=== PATIENT | male | born 1995 | race Caucasian/White ===

== ENCOUNTER 2017-06-11 10:20 | Emergency (ER) | payer OTHER | END 2017-06-11 11:47 | disposition left against medical advice (07) | LOC: UCEAST 10:20 | DX: T14.8 Other injury of unspecified body region (principal); W57.XXXA Bitten or stung by nonvenomous insect and other nonvenomous arthropods, initial encounter; Y93.9 Activity, unspecified; Y92.9 Unspecified place or not applicable; Z53.21 Procedure and treatment not carried out due to patient leaving prior to being seen by health care provider ==

== ENCOUNTER 2017-06-11 12:08 | Emergency (ER) | payer OTHER ==
[2017-06-11 12:55] VITALS: BP 154/72
--- NOTE | 2017-06-11 13:01 | UC ---
Skin Complaint HPI - HPI Summary HPI Summary: 22 year old male presents with a bull eye rash on his chest. - History of Current Complaint Chief Complaint: UCSkin Time Seen by Provider: 06/11/17 12:09 Stated Complaint: TICK BITE - Allergy/Home Medications Allergies/Adverse Reactions: Allergies Allergy/AdvReac Type Severity Reaction Status Date / Time No Known Allergies Allergy Verified 06/11/17 12:42 Review of Systems Constitutional: Negative Skin: Rash - on chest Eyes: Negative ENT: Negative Respiratory: Negative Cardiovascular: Negative Gastrointestinal: Negative Genitourinary: Negative Motor: Negative Neurovascular: Negative Musculoskeletal: Negative Neurological: Negative Psychological: Negative All Other Systems Reviewed And Are Negative: Yes PMH/Surg Hx/FS Hx/Imm Hx Previously Healthy: Yes - Surgical History Surgical History: Yes Surgery Procedure, Year, and Place: APPENDIX - Family History Known Family History: Positive: Unknown - Social History Alcohol Use: Occasionally Alcohol Amount: 3 TIMES/WEEK Substance Use Type: Marijuana Substance Use Comment - Amount & Last Used: last week Smoking Status (MU): Current Some Day Smoker Have You Smoked in the Last Year: No Physical Exam Triage Information Reviewed: Yes Vital Signs: Initial Vital Signs Temp 37.3 C 06/11/17 12:43 Pulse 106 06/11/17 12:43 Resp 16 06/11/17 12:43 BP 154/72 06/11/17 12:43 Eye Exam: Normal ENT Exam: Normal Dental Exam: Normal Neck exam: Normal Neck: Positive: 1 Respiratory Exam: Normal Cardiovascular Exam: Normal Abdominal Exam: Normal Musculoskeletal Exam: Normal Neurological Exam: Normal Psychological Exam: Normal Skin Exam: Normal Skin: Positive: rashes - on chest Course/Dx - Diagnoses Provider Diagnoses: bulls eye rash on chest Discharge - Discharge Plan Condition: Stable Disposition: HOME Prescriptions: DOXYcycline CAP(*) [DOXYcycline 100MG CAP(*)] 100 mg PO BID #[id number] Referrals: Higinio Bowser MD [Primary Care Provider] - If Needed
[2017-06-14 15:54] LABS: Lyme Disease IgG Ab WB Negative (Negative)
== END 2017-06-11 13:13 | disposition home or self-care (01) ==
LOC: UCEAST 12:08
DX: R21 Rash and other nonspecific skin eruption (principal); Z72.0 Tobacco use
CPT/HCPCS: 86617; 86618; 99212; G0463

== ENCOUNTER → 2019-07-05 09:39 | Day surgery (SDC) | payer OTHER ==
[~2019-07-05 09:39] MED LIST: Acetaminophen TAB* 325 MG PO PRN; Buffered Lidocaine 1% SYRIN* 1 ML/SYRINGE INTRADERM ONE; Lactated Ringers 1000 ML Bag* 1,000 ML IV SCH; Lidocaine 2% PF * 5 ML VIAL ONE; Midazolam* 1 MG/ML 2 ML VIAL (2 MG) ONE; Naloxone* 0.4 MG/ML 1 ML VIAL IV PRN; Ondansetron INJ* 2 MG/ML VIAL IV PRN; Propofol* 10 MG/ML 20 ML BTL ONE
[2019-07-05 12:21] VITALS: BP 108/69
--- NOTE | 2019-07-05 14:11 | PRO ---
DATE: 07/05/19 REFERRING PHYSICIAN: Dimas Ibrahim MD, [facility].* PROCEDURE: Upper gastrointestinal endoscopy and CLOtest and biopsy of third portion duodenum. INDICATION: This 24-year-old man, currently unemployed, comes in evaluating left upper quadrant pain and some nausea. He has been prescribed omeprazole 20 mg, which he takes about every second or third day, a little less often over the last month on the suggestion of the nurse practitioner planning today's evaluation. He was previously diagnosed with celiac with high titer (over 50 each time) + TTG IgA 03/10/12, 09/11/16 and 05/03/17 and+ antiendomesial Ab 1:320 March 2012. He has never been anemic with Hg always over 15 - 6 values 2011 to 01/25/19 Hg 15.8. He has been more attentive to a gluten- free diet in the last month, characterizing his compliance before that is "85%." Most recent item was pizza. He otherwise confesses no regular temptations that he cannot resist. Due to the benzodiazepine agitation in 2011, it was planned to do him with propofol. ENDOSCOPIST: Dr. Dee. MEDICATIONS: Propofol per Dr. Johnson. FINDINGS: He was positioned left side down at 45 degrees. EGD: Larynx - symmetric, limited views. Esophagus - easily entered. The mucosa is normal in the upper, mid, and lower esophagus, though there was free reflux observed in large amounts. There was then a moderate hiatal hernia and focal erosion at 6 o'clock orientation. It was fairly deep, 5 to 6 mm and clearly typical peptic lesion. There was no stricture. Stomach - gagging continued to a certain degree despite the propofol which tended to have a very short intermittent window with sporadic dosing. Overall, the mucosa appeared normal and the rugal pattern normal. There were no erosions and no blood seen. A CLOtest was taken. Duodenum - the pylorus was normal and the contours of the bulb appeared normal, though the mucosa was irregular, flattened with furrows and a change. This was very evident in the second and third portion. Three biopsies were taken. IMPRESSION: 1. Moderate hiatal hernia. 2. Erosive gastroesophageal reflux disease. 3. Duodenopathy - consistent with celiac disease. Addendum: Clotest negative; duodenal Bx abnormal with mild blunting and IELs 4. Substance abuse issues - contributing to all of his symptoms. 5. Dyspepsia; multifactorial - noncompliance with diet, meds and f/u all contributing - unclear celiac contribution to active symptoms [id number] #: [id number] JOE
== END | disposition home or self-care (01) ==
LOC: OR 09:39
PROVIDERS: ATTEND Internal Medicine Gastroenterology
DX: R10.12 Left upper quadrant pain (principal); R11.0 Nausea; K44.9 Diaphragmatic hernia without obstruction or gangrene; K21.9 Gastro-esophageal reflux disease without esophagitis; K26.9 Duodenal ulcer, unspecified as acute or chronic, without hemorrhage or perforation; K90.0 Celiac disease; K76.0 Fatty (change of) liver, not elsewhere classified; R11.10 Vomiting, unspecified
CPT/HCPCS: 87077; 88305; J2250; J2704